=== PATIENT | male | born 1970 | race Caucasian/White ===

== ENCOUNTER 2016-10-14 07:29 | Emergency (ER) | payer BC ==
--- NOTE | ~2016-10-14 | CR7 ---
[facility] A Service of [facility] & [facility] RADIOLOGY TEXT RESULTS PATIENT: VELIA ARECHIGA LOCATION: SED : 66 UNIT #: [id number] AGE: [address]: Samantha Barker MD SEX: M ORDER DR: [id number] [address] [address] [id number] MR#: [id number] Acc #: [id number] NAME: VELIA ARECHIGA : 1970 SEX: M STUDY DATE/TIME: 10/14/2016 7:52 UNIT: SED ROOM: STUDY DESCRIPTION: CR Abdomen Single AP View Attending Physician: Samantha Barker M.D. Ordering Physician: Samantha Barker M.D. Primary Care Physician: Sonny Amor M.D. MEDICAL IMAGING REPORT This report is preliminary unless electronic signature is present. EXAM AP view abdomen, 10/14/2016 HISTORY Left flank pain began last night. FINDINGS Two abdominal radiographs are presented. Comparison to CT examination 07/21/2016. No acute bony abnormality. The bowel gas pattern is normal. No free air. There are prominent left renal calculi in the mid to lower kidney corresponding to appearance on prior CT examination. The dominant visualized calculus measures about 13.0 mm in maximum diameter and is in the [facility] left kidney. Not significantly changed in appearance from prior CT examination. No definite calculi seen along the anticipated course of the left ureter. Calcifications in the deep pelvis bilaterally correspond to phleboliths seen on prior CT examination. Significantly smaller calculi in the left upper renal pole and throughout the right kidney seen on prior CT examination are not clearly evident on the plain radiograph. If it would assist in management, kidneys, ureters, urinary bladder could be further evaluated with repeat noncontrast enhanced CT. The lung bases are clear. Dictated by... Maxi Henry M.D. THIS IS AN ELECTRONICALLY VERIFIED REPORT Maxi Hnery M.D. at 10/15/2016 11:32 PM JOHN/[place]rent[place] TD: 10/14/2016 10:35 JOB #: [id number] [facility]. [facility] A Service of [facility] & [facility] RADIOLOGY TEXT RESULTS PATIENT: VEL[facility]IG[id number] [birth year] UNIT #: [id number] AGE: [address]: Samantha Barker MD SEX: M ORDER DR: MEDICAL IMAGING REPORT Page 1 of 1
[~2016-10-14 07:29] MED LIST: ATENOLOL PO; CIPRO PO; FLOMAX0.4 M1 PO; HYDROCODON-ACE1 EAC7 PO; PERCOCET 5-3251 TAB PO; PERCOCET5/325 PO; PRINIVIL20 M1; ZANTAC PO; ZOFRAN ODT4 MG PO; ZOFRAN ODT4 MG/UDTAB PO
[2016-10-14 08:02] LABS: BASOPHIL# 0.1 X10e3 (0-0.3); BASOPHIL% 1.2 % (0-2.5); EOSINOPHIL# 0.2 X10e3 (0-0.7); EOSINOPHIL% 2.6 % (0.0-7.0); HEMATOCRIT 39.4 % (38.0-50.0); HEMOGLOBIN 13.2 gm/dL (13.0-16.0); LYMPHOCYTE# 1.6 X10e3 (1.0-3.5); LYMPHOCYTE% 19.5 % (17.0-45.0); MEAN CELL VOLUME 81.5 FL (83-96); MEAN CORPUSCULAR HEMOGLOBIN 27.3 PG (28-34); MEAN CORPUSCULAR HGB CONC 33.5 g/dL (30-36); MEAN PLATELET VOLUME 7.4 FL (6.5-11.5); MONOCYTE# 0.8 X10e3 (0-1.0); MONOCYTE% 10.7 % (3.0-12.0); NEUTROPHIL# 5.2 X10e3 (1.5-7.1); PLATELET COUNT 285 X10e3 (140-420); RED BLOOD COUNT 4.83 X10e (3.90-5.60); RED CELL DISTRIBUTION WIDTH 14.3 % (11.0-15.5)
[2016-10-14 08:04] LABS: DIFF IND NO
[2016-10-14 08:19] LABS: URINE SOURCE CLEAN CATCH
[2016-10-14 08:22] LABS: URINE APPEARANCE CLEAR; URINE BILIRUBIN NEG (NEG); URINE BLOOD 1+ (NEG); URINE COLOR YELLOW; URINE KETONE NEG (NEG); URINE LEUKOCYTE ESTERASE TRACE (NEG); URINE NITRATE NEG (NEG); URINE PROTEIN TRACE (NEG); URINE SPECIFIC GRAVITY 1.025 (1.003-1.035); URINE UROBILINOGEN 0.2 MG/DL (NORM)
[2016-10-14 08:23] LABS: MICRO INDICATED? YES; URINE GLUCOSE 50 MG/DL (NORM)
[2016-10-14 08:23] LABS: BUN/CREATININE RATIO 10.62; CREATININE SERUM 1.6 mg/dL (0.6-1.4); GLOM FILT RATE Estimated 50.6 mL/min (>60); POTASSIUM 3.6 mmol/L (3.5-5.1)
[2016-10-14 08:31] LABS: AMPHETAMINE POS (NEG); BARBITURATES NEG (NEG); BENZODIAZEPINES NEG (NEG); COCAINE NEG (NEG); MARIJUANA NEG (NEG); OPIATES NEG (NEG); TRICYCLIC ANTIDEPRESSANTS NEG (NEG); U METHADONE NEG (NEG)
[2016-10-14 08:32] LABS: CULTURE INDICATED? YES; URINE BACTERIA 1+ (NEG); URINE SQUAMOUS EPITHELIAL CELL FEW /[HPF]; URINE WBC 25-50 /[HPF] (0-5)
== END 2016-10-14 09:07 | disposition home or self-care (01) ==
LOC: SED 07:29
PROVIDERS: Student in an Organized Health Care Education/Training Program
DX: N20.0 Calculus of kidney (principal); Z87.442 Personal history of urinary calculi; K21.9 Gastro-esophageal reflux disease without esophagitis; I10 Essential (primary) hypertension; F17.200 Nicotine dependence, unspecified, uncomplicated
CPT/HCPCS: 36415; 74000; 80048; 80307; 81003; 85025; 87086; 96361; 96374; 96375; 99284; J1885; J2405

== ENCOUNTER 2016-10-22 06:35 | Emergency (ER) | payer BC ==
[2016-10-22 07:55] LABS: BASOPHIL# 0.1 X10e3 (0-0.3); BASOPHIL% 0.8 % (0-2.5); EOSINOPHIL# 0.1 X10e3 (0-0.7); EOSINOPHIL% 0.9 % (0.0-7.0); HEMATOCRIT 41.8 % (38.0-50.0); HEMOGLOBIN 13.9 gm/dL (13.0-16.0); LYMPHOCYTE# 1.7 X10e3 (1.0-3.5); LYMPHOCYTE% 17.4 % (17.0-45.0); MEAN CELL VOLUME 81.9 FL (83-96); MEAN CORPUSCULAR HEMOGLOBIN 27.3 PG (28-34); MEAN CORPUSCULAR HGB CONC 33.4 g/dL (30-36); MEAN PLATELET VOLUME 7.5 FL (6.5-11.5); MONOCYTE# 1.2 X10e3 (0-1.0); MONOCYTE% 12.1 % (3.0-12.0); NEUTROPHIL# 6.8 X10e3 (1.5-7.1); NEUTROPHIL% 68.8 % (40-75); PLATELET COUNT 307 X10e3 (140-420); RED CELL DISTRIBUTION WIDTH 14.4 % (11.0-15.5); WHITE BLOOD COUNT 9.9 X10e3 (4.0-10.5)
[2016-10-22 07:56] LABS: DIFF IND NO
[2016-10-22 08:15] LABS: BUN/CREATININE RATIO 16.47; CALCIUM SERUM 9.6 mg/dL (8.4-10.2); CREATININE SERUM 1.7 mg/dL (0.6-1.4)
[2016-10-22 08:55] LABS: URINE SOURCE CLEAN CATCH
[2016-10-22 09:09] LABS: URINE APPEARANCE CLEAR; URINE BILIRUBIN NEG (NEG); URINE BLOOD 2+ (NEG); URINE COLOR YELLOW; URINE GLUCOSE NEG (NORM); URINE KETONE NEG (NEG); URINE LEUKOCYTE ESTERASE TRACE (NEG); URINE NITRATE NEG (NEG); URINE PH 6.5 (5-8); URINE PROTEIN TRACE (NEG); URINE SPECIFIC GRAVITY 1.015 (1.003-1.035); URINE UROBILINOGEN 0.2 MG/DL (NORM)
[2016-10-22 09:11] LABS: MICRO INDICATED? YES
[2016-10-22 09:14] LABS: URINE RBC 25-50 /[HPF] (0-2)
[2016-10-22 09:15] LABS: CULTURE INDICATED? YES; URINE AMORPHOUS SEDIMENT AMORP URATES; URINE BACTERIA NEG (NEG); URINE MUCUS PRESENT
[2016-10-22 09:19] LABS: AMPHETAMINE POS (NEG); BARBITURATES NEG (NEG); BENZODIAZEPINES NEG (NEG); COCAINE NEG (NEG); MARIJUANA NEG (NEG); OPIATES POS (NEG); TRICYCLIC ANTIDEPRESSANTS NEG (NEG); U METHADONE NEG (NEG)
== END 2016-10-22 09:32 | disposition home or self-care (01) ==
LOC: SED 06:35
PROVIDERS: Emergency Medicine
DX: N39.0 Urinary tract infection, site not specified (principal); Z79.899 Other long term (current) drug therapy
CPT/HCPCS: 36415; 80048; 80307; 81003; 85025; 87086; 96361; 96374; 99284; J1885